=== PATIENT | female | born 1955 | race Caucasian/White ===

== ENCOUNTER → 2020-12-15 | Outpatient (CLI) | payer MEDICARE, OTHER ==
[~2020-12-15] MED LIST: AMARYL1 MG PO; AMITIZA24 MCG PO; CLARITIN-D 241 EACH PO; CRESTOR10 MG PO; FISH OIL 1,2001 EAC1 PO; FLUOXETINE HCL20 MG PO; GABAPENTIN300 MG PO; GLYBURIDE-METF1 EAC1 PO; IPRATROPIU0.2 MG/1 M; JANUVIA100 MG PO; LISINOPRIL-HCT1 EACH PO; LOSARTAN POTAS100 MG PO; MELOXICAM7.5 MG PO; METOPROLOL TART25 MG PO; OMEPRAZOLE40 MG PO; ONDANSETRON2 MG/1 ML PO; OXYBUTYNIN CHLOR5 MG PO; SIMVASTATIN20 MG PO; TIZANIDINE HCL4 MG PO
== END ==
LOC: RAD 13:36
PROVIDERS: ATTEND Internal Medicine
DX: R10.9 Unspecified abdominal pain (principal)
CPT/HCPCS: 71046; 74019

== ENCOUNTER → 2021-02-25 | Outpatient (CLI) | payer MEDICARE, OTHER ==
[~2021-02-25] MED LIST changes: +DIATRIZOATE MEGL/DIATRIZOA SOD 30 ML BTL PO ONE; +IOPAMIDOL 370 MG/ML 200 ML INFUS..BTL INJ ONE; +SODIUM CHLORIDE 0.9% 250ML 250 ML ONE; +SODIUM CHLORIDE 0.9% 500ML 500 ML ONE; +SODIUM CHLORIDE 0.9% 50ML 50 ML ONE
== END ==
LOC: CT 09:08
PROVIDERS: ATTEND Internal Medicine
DX: K57.92 Diverticulitis of intestine, part unspecified, without perforation or abscess without bleeding (principal)
CPT/HCPCS: 74177; J7040; J7050; Q9967

== ENCOUNTER → 2021-05-28 | Outpatient (CLI) | payer MEDICARE, OTHER ==
[~2021-05-28] MED LIST changes: -DIATRIZOATE MEGL/DIATRIZOA SOD 30 ML BTL PO ONE; -IOPAMIDOL 370 MG/ML 200 ML INFUS..BTL INJ ONE; -SODIUM CHLORIDE 0.9% 250ML 250 ML ONE; -SODIUM CHLORIDE 0.9% 500ML 500 ML ONE; -SODIUM CHLORIDE 0.9% 50ML 50 ML ONE
== END ==
LOC: SLEEP 06:34
PROVIDERS: ATTEND Internal Medicine
DX: G47.33 Obstructive sleep apnea (adult) (pediatric) (principal)
CPT/HCPCS: 95811

== ENCOUNTER → 2021-06-08 | Outpatient (CLI) | payer MEDICARE, OTHER | LOC: DX 10:26 | PROVIDERS: ATTEND Internal Medicine | DX: Z13.820 Encounter for screening for osteoporosis (principal) | CPT/HCPCS: 77080 ==

== ENCOUNTER → 2021-08-18 | Outpatient (CLI) | payer MEDICARE, OTHER | LOC: RAD 09:29 | PROVIDERS: ATTEND Internal Medicine | DX: M19.031 Primary osteoarthritis, right wrist (principal) ==

== ENCOUNTER → 2021-09-29 | Outpatient (CLI) | payer MEDICARE, OTHER ==
[~2021-09-29] MED LIST changes: +IOPAMIDOL 370 MG/ML 200 ML INFUS..BTL INJ ONE; +METOPROLOL TARTRATE 25 MG TAB ONE; +METOPROLOL TARTRATE INJ 1 MG/ML VIAL ONE; +NITROGLYCERIN 0.4 MG SUBL ONE; +SODIUM CHLORIDE 0.9% 100 ML ONE; +SODIUM CHLORIDE 0.9% 50ML 0 ML ONE
[2021-09-29 08:32] LABS: CREATININE, SERUM 1.06 mg/dL (0.57-1.11)
== END ==
LOC: CT 07:46
PROVIDERS: ATTEND Internal Medicine Cardiovascular Disease
DX: R06.02 Shortness of breath (principal)
CPT/HCPCS: 36415; 75574; 82565; 84520; J7050; Q9967

== ENCOUNTER → 2021-10-31 | Day surgery (SDC) | payer MEDICARE, OTHER ==
[2021-10-26 12:54] LABS: BASOPHILS % 0.4 % (0.0-1.0); EOSINOPHILS # (AUTO) 0.2 (0.0-0.4); EOSINOPHILS % 2.3 % (0.0-6.0); HEMATOCRIT 32.1 % (34.2-44.1); HEMOGLOBIN 9.9 g/dL (12.0-16.0); LYMPHOCYTES # (AUTO) 1.6 (1.0-3.2); LYMPHOCYTES % 23.8 % (18.0-39.1); MEAN CORPUSCULAR HEMOGLOBIN 26.2 pg (28-32); MEAN CORPUSCULAR HGB CONC 30.8 g/dL (31-35); MEAN CORPUSCULAR VOLUME 84.9 fL (81-99); MONOCYTES # (AUTO) 0.7 (0.2-0.8); MONOCYTES % 9.6 % (4.4-11.3); NEUTROPHILS # (AUTO) 4.4 (2.1-6.9); NEUTROPHILS % 63.5 % (38.7-80.0); PLATELET COUNT 160 x10e3/uL (140-360); RED BLOOD COUNT 3.78 x10e6/uL (3.6-5.1); RED CELL DISTRIBUTION WIDTH 15.9 % (11.7-14.4)
[2021-10-26 13:06] LABS: INR 1.18
[2021-10-26 13:07] LABS: PARTIAL THROMBOPLASTIN TIME 32.4 seconds (23.8-35.5)
[2021-10-26 13:13] LABS: ALBUMIN 3.2 g/dL (3.5-5.0); ALBUMIN/GLOBULIN RATIO 0.8 (0.8-2.0); ANION GAP 14.2 mmol/L (8-16); CALCIUM 9.4 mg/dL (8.4-10.2); CHOL/HDL RATIO 3.3 (3.0-3.6); CREATININE, SERUM 1.31 mg/dL (0.57-1.11); POTASSIUM 4.2 mmol/L (3.5-5.1)
[~2021-10-31] VITALS: Ht 170.2 cm; Wt 133.8 kg
[2021-10-31] VITALS (10 sets, daily range): BP systolic 102–121; BP diastolic 38–61
[~2021-10-31] MED LIST changes: +AMARYL2 MG PO; +ELIQUIS5 MG PO; +FENTANYL CITRATE/PF 100MCG/2 ML INJ ONE; +FUROSEMIDE40 MG PO; +HEPARIN SOD/SOD CHLORIDE 2,000 ML ONE; +IOPAMIDOL 370 MG/ML 100 ML INFUS..BTL INJ ONE; -IOPAMIDOL 370 MG/ML 200 ML INFUS..BTL INJ ONE; +LEVOCETIRIZINE D5 MG; +METHOCARBAMOL750 MG PO; +METOPROLOL TART50 MG PO; -METOPROLOL TARTRATE 25 MG TAB ONE; -METOPROLOL TARTRATE INJ 1 MG/ML VIAL ONE; +MIDAZOLAM HCL 2 MG/2 ML VIAL ONE; +MYRBETRIQ50 MG; -NITROGLYCERIN 0.4 MG SUBL ONE; +OZEMPIC0.25 MG/0. SC; +PROMETHAZINE HC25 M1 PO; -SODIUM CHLORIDE 0.9% 100 ML ONE; +SODIUM CHLORIDE 0.9% 1000ML 1,000 ML ONE; -SODIUM CHLORIDE 0.9% 50ML 0 ML ONE; +TYLENOL EXTRA500 MG PO; +ULTRAM50 MG PO; +VERAPAMIL HCL 2.5 MG/ML 2 ML VIAL ONE
== END | disposition home or self-care (01) ==
LOC: CATH LAB 07:23
PROVIDERS: ATTEND Internal Medicine Cardiovascular Disease
DX: I25.119 Atherosclerotic heart disease of native coronary artery with unspecified angina pectoris (principal); I48.91 Unspecified atrial fibrillation; I12.9 Hypertensive chronic kidney disease with stage 1 through stage 4 chronic kidney disease, or unspecified chronic kidney disease; N18.9 Chronic kidney disease, unspecified; E78.5 Hyperlipidemia, unspecified; E66.9 Obesity, unspecified; Z01.812 Encounter for preprocedural laboratory examination; Z20.822 Contact with and (suspected) exposure to COVID-19; Z79.02 Long term (current) use of antithrombotics/antiplatelets; Z79.84 Long term (current) use of oral hypoglycemic drugs; Z79.899 Other long term (current) drug therapy
CPT/HCPCS: 36415; 76937; 80053; 80061; 85025; 85610; 85730; 93458; C1887; J2250; J3010; J7030; Q9967; U0002; 99152

== ENCOUNTER → 2024-01-16 | Outpatient (REF) | payer MEDICARE, OTHER ==
[~2024-01-16] MED LIST changes: -FENTANYL CITRATE/PF 100MCG/2 ML INJ ONE; -HEPARIN SOD/SOD CHLORIDE 2,000 ML ONE; -IOPAMIDOL 370 MG/ML 100 ML INFUS..BTL INJ ONE; -MIDAZOLAM HCL 2 MG/2 ML VIAL ONE; -SODIUM CHLORIDE 0.9% 1000ML 1,000 ML ONE; -VERAPAMIL HCL 2.5 MG/ML 2 ML VIAL ONE
== END ==
LOC: MAMMO 11:59
PROVIDERS: ATTEND Internal Medicine
DX: Z12.31 Encounter for screening mammogram for malignant neoplasm of breast (principal)
CPT/HCPCS: 77067

== ENCOUNTER → 2024-02-14 | Outpatient (REF) | payer MEDICARE, OTHER | LOC: MAMMO 11:39 | PROVIDERS: ATTEND Internal Medicine | DX: N63.10 Unspecified lump in the right breast, unspecified quadrant (principal) ==

== ENCOUNTER → 2024-04-16 | Outpatient (REF) | payer MEDICARE, OTHER | LOC: US 13:39 | PROVIDERS: ATTEND Internal Medicine | DX: N63.10 Unspecified lump in the right breast, unspecified quadrant (principal) | CPT/HCPCS: 88305 ==

== ENCOUNTER 2024-06-23 18:05 | Inpatient (IN) | payer MEDICARE, OTHER ==
[~2024-06-23] VITALS: Ht 170.2 cm; Wt 117.9 kg
[2024-06-23 19:10] LABS: BASOPHILS % 0.5 % (0.0-1.0); EOSINOPHILS % 0.5 % (0.0-6.0); HEMATOCRIT 42.6 % (34.2-44.1); HEMOGLOBIN 12.9 g/dL (12.0-16.0); LYMPHOCYTES # (AUTO) 0.6 (1.0-3.2); LYMPHOCYTES % 6.4 % (18.0-39.1); MEAN CORPUSCULAR HEMOGLOBIN 25.6 pg (28-32); MEAN CORPUSCULAR HGB CONC 30.3 g/dL (31-35); MEAN CORPUSCULAR VOLUME 84.5 fL (81-99); MONOCYTES # (AUTO) 0.2 (0.2-0.8); MONOCYTES % 2.3 % (4.4-11.3); NEUTROPHILS # (AUTO) 7.8 (2.1-6.9); PLATELET COUNT 218 x10e3/uL (140-360); RED BLOOD COUNT 5.04 x10e6/uL (3.6-5.1); RED CELL DISTRIBUTION WIDTH 15.9 % (11.7-14.4); WHITE BLOOD COUNT 8.63 x10e3/uL (4.8-10.8)
[2024-06-23 19:28] LABS: ALBUMIN 4.2 g/dL (3.5-5.0); ANION GAP 25.1 mmol/L (8-16); BILIRUBIN,TOTAL 0.8 mg/dL (0.2-1.2); CALCIUM 10.3 mg/dL (8.4-10.2); CREATININE, SERUM 0.87 mg/dL (0.57-1.11); POTASSIUM 4.1 mmol/L (3.5-5.1); TOTAL PROTEIN 8.3 g/dL (6.5-8.1)
[2024-06-23 19:34] LABS: TROPONIN I 0.007 ng/mL (0-0.300)
[2024-06-23] MEDS ORDERED: IOPAMIDOL 370 MG/ML 100 ML INFUS..BTL INJ ONE (19:50)
[2024-06-23] MEDS: PROMETHAZINE 25MG/ NS 50ML (IV) IV STA (20:54)
[2024-06-23] MEDS: KETOROLAC TROMETHAMINE 30 MG/ML VIAL IV STA (20:55)
[2024-06-23] MEDS: SODIUM CHLORIDE 0.9% 1000ML 1,000 ML IV STA (22:40)
[2024-06-23] MEDS: ONDANSETRON HCL INJ 2MG/ML 2ML 2 MG/ML VIAL IV STA (22:41)
[2024-06-23] MEDS: FENTANYL CITRATE/PF 100MCG/2 ML INJ IV ONE (22:41)
[2024-06-23 23:16] LABS: COLOR,URINE YELLOW (YELLOW)
[2024-06-23 23:17] LABS: BILIRUBIN,URINE NEGATIVE (NEGATIVE); CLARITY,URINE CLOUDY (CLEAR); GLUCOSE, URINE NEGATIVE (NEGATIVE); KETONES,URINE 2+ (NEGATIVE); LEUKOCYTE ESTERASE ,URINE TRACE (NEGATIVE); NITRITE,URINE NEGATIVE (NEGATIVE); PH,URINE 7 (5 - 7); PROTEIN,URINE DIPSTICK >=300 (NEGATIVE); URINE UROBILINOGEN 0.2 mg/dL (0.2 - 1)
[2024-06-23 23:24] LABS: WBC,URINE (MAN) 21-50 /HPF (0-5)
[2024-06-23 23:25] LABS: BACTERIA,URINE MANY /HPF; EPITHELIAL CELLS,URINE FEW /LPF
[2024-06-24] MEDS ORDERED: METOCLOPRAMIDE HCL 10 MG/2ML VIAL ONE (00:12)
[2024-06-24] MEDS: METOPROLOL TARTRATE INJ 1 MG/ML VIAL IV STA (00:28)
[2024-06-24] MEDS: METOCLOPRAMIDE HCL 10 MG/2ML VIAL IV ONE (00:28)
[2024-06-24] MEDS: CIPROFLOXACIN 400 MG/D5W 200ML 200 ML IV SCH ×2 (00:29→17:27)
[2024-06-24] MEDS: SODIUM CHLORIDE 0.9% 1000ML 1,000 ML IV STA (00:29)
[2024-06-24] MEDS: DIAZEPAM INJ 5 MG/ML 2 ML IV STA ×2 (01:40→04:24)
[2024-06-24] MEDS: METOPROLOL TARTRATE INJ 1 MG/ML VIAL IV ONE (04:23)
[2024-06-24] MEDS: SODIUM CHLORIDE 0.9% 1000ML 1,000 ML IV SCH (04:24)
[2024-06-24] MEDS ORDERED: LINZESS145 MCG PO (07:56)
[2024-06-24] MEDS ORDERED: PROCHLORPERAZIN10 MG PO (07:56)
[2024-06-24] MEDS ORDERED: REGLAN10 MG PO (07:56)
[2024-06-24] MEDS ORDERED: VENLAFAXINE H37.5 M1 PO (07:56)
[2024-06-24] MEDS ORDERED: ROSUVASTATIN CA40 MG PO (07:56)
[2024-06-24] MEDS ORDERED: ALBUTEROL0.63 MG/3 NEB (07:56)
[2024-06-24] MEDS ORDERED: AMIODARONE HCL200 MG PO (07:56)
[2024-06-24] MEDS ORDERED: MONTELUKAST SOD10 MG PO (07:56)
[2024-06-24] MEDS: DICYCLOMINE HCL 20 MG/2 ML VIAL IM ONE (08:23)
[2024-06-24] MEDS: DIPHENHYDRAMINE HCL INJ 50 MG/ML VIAL IV ONE (08:23)
[2024-06-24 09:10] VITALS: PULSE 83; RESP 20; TEMP 98.4
[2024-06-24] MEDS ORDERED: ACETAMINOPHEN 325 MG TAB PO PRN (10:00)
[2024-06-24 10:19] LABS: TROPONIN I 0.035 ng/mL (0-0.300)
[2024-06-24] MEDS: ONDANSETRON HCL INJ 2MG/ML 2ML 2 MG/ML VIAL IV PRN (11:01)
[2024-06-24] MEDS: METOCLOPRAMIDE HCL 10 MG/2ML VIAL IV SCH (11:01)
[2024-06-24] MEDS ORDERED: Morphine 2mg Syringe 2 MG/ML SYR IV PRN (11:45)
[2024-06-24 12:00] VITALS: BP 163/78; PULSE 85; RESP 18; TEMP 97.9; O2SAT 100
[2024-06-24 12:06] VITALS: BP 163/78; PULSE 85; RESP 18; TEMP 97.9; O2SAT 100
[2024-06-24] MEDS: HYDROMORPHONE 1MG/1ML INJ IV PRN (13:36)
[2024-06-24] MEDS: PROMETHAZINE 12.5MG/ NACL 0.9% 12.5 MG/50 ML BAG IV PRN ×2 (13:37→18:25)
[2024-06-24] MEDS ORDERED: FUROSEMIDE 40 MG TAB PO PRN (15:30)
[2024-06-24] MEDS ORDERED: HYDRALAZINE HCL 20 MG/ML VIAL IV PRN (15:30)
[2024-06-24 16:28] VITALS: BP 145/67; PULSE 96; RESP 18; TEMP 98.1; O2SAT 97
[2024-06-24] MEDS: AMIODARONE HCL 200 MG TAB PO SCH (17:30)
[2024-06-24] MEDS: GABAPENTIN 300 MG CAP PO SCH (17:30)
[2024-06-24 17:31] VITALS: BP 145/67; PULSE 96
[2024-06-24] MEDS: ENOXAPARIN SOD INJ 40 MG/0.4 ML SYR SC SCH (17:31)
[2024-06-24] MEDS: METOPROLOL TARTRATE 25 MG TAB PO SCH (17:31)
[2024-06-24] MEDS ORDERED: LOSARTAN POTASSIUM 25 MG TAB PO SCH (21:00)
[2024-06-30 05:41] LABS: ABG HCO3 19 mmol/L (22-26); ABG PCO2 27 mmHg (35-45); ABG PH 7.46 (7.35-7.45); ABG PO2 63 mmHg (80-105); ABG TCO2 20
== END 2024-06-24 19:03 | disposition short-term general hospital (02) | DRG 392 ==
LOC: ER 18:10 → ERHOLD 06-24 02:01 → MED/SURG2 06-24 10:35 → OBSVTOIN 06-24 12:53 → UNDODISOB 06-24 19:03
PROVIDERS: ADMIT Internal Medicine; ATTEND Internal Medicine
PROC: 4A033R1 Measurement of Arterial Saturation, Peripheral, Percutaneous Approach (ICD-10-PCS; principal; 2024-06-24)
PROC: 4A043R1 Measurement of Venous Saturation, Peripheral, Percutaneous Approach (ICD-10-PCS; 2024-06-24)
DX: R11.2 Nausea with vomiting, unspecified (principal); N30.01 Acute cystitis with hematuria; J90 Pleural effusion, not elsewhere classified; E87.1 Hypo-osmolality and hyponatremia; K76.6 Portal hypertension; E87.29 Other acidosis; Z68.41 Body mass index [BMI] 40.0-44.9, adult; J98.11 Atelectasis; R07.9 Chest pain, unspecified; E83.52 Hypercalcemia; I47.9 Paroxysmal tachycardia, unspecified; K21.00 Gastro-esophageal reflux disease with esophagitis, without bleeding; I48.0 Paroxysmal atrial fibrillation; Z79.01 Long term (current) use of anticoagulants; K74.60 Unspecified cirrhosis of liver; K57.30 Diverticulosis of large intestine without perforation or abscess without bleeding; E66.01 Morbid (severe) obesity due to excess calories; F33.41 Major depressive disorder, recurrent, in partial remission; F41.9 Anxiety disorder, unspecified; G62.9 Polyneuropathy, unspecified; Z85.01 Personal history of malignant neoplasm of esophagus; Z90.49 Acquired absence of other specified parts of digestive tract; Z79.899 Other long term (current) drug therapy
CPT/HCPCS: 36415; 71260; 74177; 80053; 81001; 82550; 82805; 82948; 83605; 83690; 83880; 84484; 85025; 87086; 93005; 99284; G0378; J1171; J1200; J1650; J1885; J2405; J2470; J2550; J2765; J3360; J7030; Q9967

== ENCOUNTER 2024-10-08 21:48 | Inpatient (IN) | payer MEDICARE, OTHER ==
[~2024-10-08] VITALS: Ht 170.2 cm; Wt 107.0 kg
[~2024-10-08 21:48] MED LIST changes: +ALBUTEROL0.63 MG/3 NEB; +AMIODARONE HCL200 MG PO; +LINZESS145 MCG PO; +MONTELUKAST SOD10 MG PO; +PROCHLORPERAZIN10 MG PO; +REGLAN10 MG PO; +ROSUVASTATIN CA40 MG PO; +VENLAFAXINE H37.5 M1 PO
[2024-10-08 22:05] VITALS: TEMP 98
[2024-10-08] MEDS ORDERED: GLUCAGON FOR INJ 1 MG VIAL IV ONE (22:15)
[2024-10-08] MEDS ORDERED: GLUCAGON FOR INJ 1 MG VIAL ONE ×2 (22:19→22:33)
[2024-10-08] MEDS: ONDANSETRON HCL INJ 2MG/ML 2ML 2 MG/ML VIAL IV STA (22:25)
[2024-10-08] MEDS: SODIUM CHLORIDE 0.9% 1000ML 1,000 ML IV ONE (22:25)
[2024-10-08] MEDS: GLUCAGON FOR INJ 1 MG VIAL IV ONE (22:35)
[2024-10-08 22:43] LABS: BASOPHILS % 0.1 % (0.0-1.0); HEMATOCRIT 32.1 % (34.2-44.1); HEMOGLOBIN 10.3 g/dL (12.0-16.0); LYMPHOCYTES # (AUTO) 0.5 (1.0-3.2); LYMPHOCYTES % 6.3 % (18.0-39.1); MEAN CORPUSCULAR HEMOGLOBIN 25.7 pg (28-32); MEAN CORPUSCULAR HGB CONC 32.1 g/dL (31-35); MONOCYTES # (AUTO) 0.1 (0.2-0.8); MONOCYTES % 1.7 % (4.4-11.3); NEUTROPHILS # (AUTO) 7.4 (2.1-6.9); NEUTROPHILS % 91.7 % (38.7-80.0); PLATELET COUNT 220 x10e3/uL (140-360); RED BLOOD COUNT 4.01 x10e6/uL (3.6-5.1); RED CELL DISTRIBUTION WIDTH 16.1 % (11.7-14.4); WHITE BLOOD COUNT 8.04 x10e3/uL (4.8-10.8)
[2024-10-08 22:56] LABS: ALBUMIN 3.7 g/dL (3.5-5.0); ANION GAP 16.7 mmol/L (8-16); BILIRUBIN,TOTAL 0.4 mg/dL (0.2-1.2); CALCIUM 9.1 mg/dL (8.4-10.2); CREATININE, SERUM 0.89 mg/dL (0.57-1.11); POTASSIUM 3.7 mmol/L (3.5-5.1); TOTAL PROTEIN 7.5 g/dL (6.5-8.1)
[2024-10-08 23:02] LABS: TROPONIN I 0.007 ng/mL (0-0.300)
[2024-10-08] MEDS ORDERED: IOPAMIDOL 370 MG/ML 100 ML INFUS..BTL INJ ONE (23:02)
[2024-10-08 23:31] LABS: CLARITY,URINE CLEAR (CLEAR); COLOR,URINE YELLOW (YELLOW)
[2024-10-08 23:32] LABS: BACTERIA,URINE MANY /HPF; BILIRUBIN,URINE NEGATIVE (NEGATIVE); EPITHELIAL CELLS,URINE FEW /LPF; GLUCOSE, URINE NEGATIVE (NEGATIVE); KETONES,URINE NEGATIVE (NEGATIVE); LEUKOCYTE ESTERASE ,URINE NEGATIVE (NEGATIVE); NITRITE,URINE NEGATIVE (NEGATIVE); PH,URINE 7 (5 - 7); PROTEIN,URINE DIPSTICK >=300 (NEGATIVE); URINE UROBILINOGEN 0.2 mg/dL (0.2 - 1); WBC,URINE (MAN) 0-5 /HPF (0-5)
[2024-10-08 23:49] VITALS: PULSE 41; RESP 17
[2024-10-09] VITALS (41 sets, daily range): BP systolic 116–191; BP diastolic 59–114; PULSE 53–85; RESP 9–25; TEMP 97–98.4; O2SAT 93–100
[2024-10-09] MEDS: SODIUM CHLORIDE 0.9% 1000ML 1,000 ML IV ONE (00:44)
[2024-10-09] MEDS: SODIUM CHLORIDE 0.9% 1000ML 1,000 ML IV SCH (02:22)
[2024-10-09 04:45] LABS: CREATINE KINASE 20 IU/L (29-168)
[2024-10-09 04:55] LABS: TROPONIN I < 0.001 ng/mL (0-0.300)
[2024-10-09] MEDS ORDERED: ACETAMINOPHEN-1 EAC3 PO (05:47)
[2024-10-09] MEDS ORDERED: METOPROLOL SUCC50 MG PO (05:47)
[2024-10-09] MEDS: ONDANSETRON HCL INJ 2MG/ML 2ML 2 MG/ML VIAL IV PRN (06:27)
[2024-10-09] MEDS ORDERED: DEXTROSE 50% SYRINGE 50 ML IV PRN (08:00)
[2024-10-09] MEDS: LACTATED RINGER'S 1,000 ML INJ SCH (08:13)
[2024-10-09] MEDS: HYDROMORPHONE 1MG/1ML INJ IV ONE (08:14)
[2024-10-09 08:16] LABS: ALBUMIN 3.5 g/dL (3.5-5.0); ANION GAP 17.4 mmol/L (8-16); BILIRUBIN,TOTAL 0.6 mg/dL (0.2-1.2); CALCIUM 8.9 mg/dL (8.4-10.2); CREATININE, SERUM 0.74 mg/dL (0.57-1.11); TOTAL PROTEIN 7.1 g/dL (6.5-8.1)
[2024-10-09 08:18] LABS: POTASSIUM 3.4 mmol/L (3.5-5.1)
[2024-10-09 09:22] LABS: BASOPHILS % 0.1 % (0.0-1.0); HEMATOCRIT 29.6 % (34.2-44.1); HEMOGLOBIN 9.7 g/dL (12.0-16.0); LYMPHOCYTES # (AUTO) 0.6 (1.0-3.2); MEAN CORPUSCULAR HEMOGLOBIN 25.8 pg (28-32); MEAN CORPUSCULAR HGB CONC 32.8 g/dL (31-35); MEAN CORPUSCULAR VOLUME 78.7 fL (81-99); MONOCYTES # (AUTO) 0.6 (0.2-0.8); MONOCYTES % 7.6 % (4.4-11.3); NEUTROPHILS # (AUTO) 7.1 (2.1-6.9); NEUTROPHILS % 85.1 % (38.7-80.0); PLATELET COUNT 159 x10e3/uL (140-360); RED BLOOD COUNT 3.76 x10e6/uL (3.6-5.1); RED CELL DISTRIBUTION WIDTH 16.2 % (11.7-14.4)
[2024-10-09] MEDS: HYDRALAZINE HCL 20 MG/ML VIAL IV PRN (11:04)
[2024-10-09] MEDS: INSULIN REGULAR, HUMAN 100 UNIT/1 ML SQ SCH (11:30)
[2024-10-09] MEDS: HYDROMORPHONE 1MG/1ML INJ IV PRN (12:16)
[2024-10-09] MEDS: PROMETHAZINE 25MG/ NS 50ML (IV) IV STA (13:09)
[2024-10-09] MEDS: PROCHLORPERAZINE EDISYLATE 5 MG/ML VIAL IV PRN (13:29)
[2024-10-09] MEDS ORDERED: LINACLOTIDE 145 MCG CAPSULE PO SCH (14:30)
[2024-10-09] MEDS: LOSARTAN POTASSIUM 100 MG TAB PO SCH (14:36)
[2024-10-09] MEDS: ACETAMINOPHEN/CODEINE 300MG - 30MG TAB PO PRN (14:37)
[2024-10-09] MEDS ORDERED: LINZESS PO SCH (15:00)
[2024-10-09] MEDS: APIXABAN 5 MG TABLET PO SCH (16:40)
[2024-10-09] MEDS: CRESTOR 10MG PO SCH (20:21)
[2024-10-10] VITALS (18 sets, daily range): BP systolic 109–184; BP diastolic 58–91; PULSE 62–96; RESP 12–22; TEMP 97.2–98.2; O2SAT 93–99
[2024-10-10] MEDS: PROMETHAZINE HCL (IM) 25 MG/ML VIAL IM ONE (02:13)
[2024-10-10 05:57] LABS: BASOPHILS % 0.3 % (0.0-1.0); EOSINOPHILS % 0.1 % (0.0-6.0); HEMATOCRIT 31.4 % (34.2-44.1); HEMOGLOBIN 10.2 g/dL (12.0-16.0); LYMPHOCYTES # (AUTO) 1.5 (1.0-3.2); LYMPHOCYTES % 19.3 % (18.0-39.1); MEAN CORPUSCULAR HEMOGLOBIN 25.6 pg (28-32); MEAN CORPUSCULAR HGB CONC 32.5 g/dL (31-35); MEAN CORPUSCULAR VOLUME 78.7 fL (81-99); MONOCYTES # (AUTO) 0.7 (0.2-0.8); MONOCYTES % 8.8 % (4.4-11.3); NEUTROPHILS # (AUTO) 5.6 (2.1-6.9); NEUTROPHILS % 71.2 % (38.7-80.0); PLATELET COUNT 199 x10e3/uL (140-360); RED BLOOD COUNT 3.99 x10e6/uL (3.6-5.1); RED CELL DISTRIBUTION WIDTH 16.6 % (11.7-14.4); WHITE BLOOD COUNT 7.87 x10e3/uL (4.8-10.8)
[2024-10-10 06:38] LABS: ALBUMIN 3.4 g/dL (3.5-5.0); ANION GAP 17.9 mmol/L (8-16); BILIRUBIN,TOTAL 0.5 mg/dL (0.2-1.2); CALCIUM 8.7 mg/dL (8.4-10.2); CREATININE, SERUM 0.83 mg/dL (0.57-1.11); TOTAL PROTEIN 6.8 g/dL (6.5-8.1)
[2024-10-10 06:43] LABS: POTASSIUM 2.9 mmol/L (3.5-5.1)
[2024-10-10 06:47] LABS: % IRON SATURATION 9 % (15-50); IRON 32 ug/dL (50-170); TOTAL IRON BINDING CAPACITY 347 ug/dL (261-478); TRANSFERRIN 248 mg/dL (180-382)
[2024-10-10 06:53] LABS: TROPONIN I 0.013 ng/mL (0-0.300)
[2024-10-10] MEDS: POTASSIUM CHLORIDE 20MEQ/100ML 100 ML IV SCH ×2 (08:32→17:41)
[2024-10-10] MEDS ORDERED: POTASSIUM CHLORIDE 20 MEQ TAB CR PO ONE (14:15)
[2024-10-10] MEDS: NIFEDIPINE CR 30 MG TAB PO SCH (14:43)
[2024-10-10] MEDS: METOCLOPRAMIDE HCL 10 MG/2ML VIAL IV SCH (23:59)
[2024-10-11] VITALS (8 sets, daily range): BP systolic 149–184; BP diastolic 56–87; PULSE 82–103; RESP 18–20; TEMP 97.6–97.9; O2SAT 96–100
[2024-10-11 00:20] LABS: ANION GAP 16.5 mmol/L (8-16); CALCIUM 8.6 mg/dL (8.4-10.2)
[2024-10-11 00:23] LABS: CREATININE, SERUM 0.78 mg/dL (0.57-1.11)
[2024-10-11 00:25] LABS: POTASSIUM 3.5 mmol/L (3.5-5.1)
[2024-10-11] MEDS: PROCHLORPERAZINE EDISYLATE 5 MG/ML VIAL IV PRN (02:15)
[2024-10-11] MEDS: ASPIRIN 81 MG CHEW TAB PO ONE (03:00)
[2024-10-11 06:23] LABS: HEMATOCRIT 33.8 % (34.2-44.1); HEMOGLOBIN 11.3 g/dL (12.0-16.0); LYMPHOCYTES % 7.4 % (18.0-39.1); MEAN CORPUSCULAR HEMOGLOBIN 25.9 pg (28-32); MEAN CORPUSCULAR HGB CONC 33.4 g/dL (31-35); MEAN CORPUSCULAR VOLUME 77.5 fL (81-99); MONOCYTES % 4.5 % (4.4-11.3); NEUTROPHILS % 87.4 % (38.7-80.0); PLATELET COUNT 220 x10e3/uL (140-360); RED BLOOD COUNT 4.36 x10e6/uL (3.6-5.1); RED CELL DISTRIBUTION WIDTH 16.5 % (11.7-14.4); WHITE BLOOD COUNT 11.47 x10e3/uL (4.8-10.8)
[2024-10-11 06:24] LABS: BASOPHILS % 0.2 % (0.0-1.0); LYMPHOCYTES # (AUTO) 0.9 (1.0-3.2); MONOCYTES # (AUTO) 0.5 (0.2-0.8)
[2024-10-11 06:55] LABS: ANION GAP 18.4 mmol/L (8-16); BILIRUBIN,TOTAL 0.6 mg/dL (0.2-1.2); CALCIUM 8.8 mg/dL (8.4-10.2); CREATININE, SERUM 0.76 mg/dL (0.57-1.11); POTASSIUM 3.4 mmol/L (3.5-5.1)
[2024-10-11 06:56] LABS: ALBUMIN 3.7 g/dL (3.5-5.0); TOTAL PROTEIN 7.5 g/dL (6.5-8.1)
[2024-10-11] MEDS: METOPROLOL SUCCINATE 25 MG TAB XL PO SCH (09:37)
[2024-10-11] MEDS: LACTULOSE SYRUP 20 GM/30 ML UDC PO SCH (16:18)
[2024-10-11] MEDS: NIFEDIPINE CR 30 MG TAB PO SCH (16:19)
[2024-10-11] MEDS: DOCUSATE SODIUM LIQD 100 MG/10 ML UDC NG ONE (16:31)
[2024-10-12] MEDS ORDERED: MONTELUKAST SODIUM 10 MG TAB PO SCH (09:00)
[2024-10-12] MEDS ORDERED: VENLAFAXINE HCL 75 MG CAPCR PO SCH (09:00)
== END 2024-10-11 18:20 | disposition short-term general hospital (02) | DRG 309 ==
LOC: ER 22:15 → ERHOLD 10-09 01:18 → ICU 10-09 02:05 → MED/SURG2 10-10 13:19
PROVIDERS: ADMIT Internal Medicine; ATTEND Internal Medicine
PROC: 02HV33Z Insertion of Infusion Device into Superior Vena Cava, Percutaneous Approach (ICD-10-PCS; principal; 2024-10-09)
DX: R00.1 Bradycardia, unspecified (principal); E87.20 Acidosis, unspecified; N17.9 Acute kidney failure, unspecified; D63.8 Anemia in other chronic diseases classified elsewhere; E86.0 Dehydration; T46.2X5A Adverse effect of other antidysrhythmic drugs, initial encounter; T44.7X5A Adverse effect of beta-adrenoreceptor antagonists, initial encounter; R11.2 Nausea with vomiting, unspecified; I95.9 Hypotension, unspecified; E86.1 Hypovolemia; K75.81 Nonalcoholic steatohepatitis (NASH); E11.65 Type 2 diabetes mellitus with hyperglycemia; I48.0 Paroxysmal atrial fibrillation; Z79.01 Long term (current) use of anticoagulants; K74.60 Unspecified cirrhosis of liver; K21.9 Gastro-esophageal reflux disease without esophagitis; K22.4 Dyskinesia of esophagus; E87.8 Other disorders of electrolyte and fluid balance, not elsewhere classified; F98.5 Adult onset fluency disorder; R41.0 Disorientation, unspecified; Z53.8 Procedure and treatment not carried out for other reasons; K59.00 Constipation, unspecified; J44.9 Chronic obstructive pulmonary disease, unspecified; F41.8 Other specified anxiety disorders; Z93.0 Tracheostomy status; Z93.4 Other artificial openings of gastrointestinal tract status; I86.8 Varicose veins of other specified sites; G62.9 Polyneuropathy, unspecified; Z85.01 Personal history of malignant neoplasm of esophagus; Z90.49 Acquired absence of other specified parts of digestive tract; Z88.5 Allergy status to narcotic agent; Z88.0 Allergy status to penicillin; Z88.2 Allergy status to sulfonamides; Z79.899 Other long term (current) drug therapy
CPT/HCPCS: 36415; 36569; 51700; 70450; 71045; 74177; 80048; 80053; 81001; 82140; 82550; 82607; 82746; 82948; 83540; 83690; 83735; 84466; 84484; 85025; 85045; 93005; 94799; 99252; 99285; J0360; J1171; J1610; J2405; J2470; J2550; J2765; J3480; J7030; Q9967

== ENCOUNTER 2025-01-23 14:14 | Emergency (ER) | payer MEDICARE, OTHER ==
[~2025-01-23] VITALS: Ht 167.6 cm; Wt 92.1 kg
[~2025-01-23 14:14] MED LIST changes: +ACETAMINOPHEN-1 EAC3 PO; +METOPROLOL SUCC50 MG PO
[2025-01-23] MEDS: SODIUM CHLORIDE 0.9% 1000ML 1,000 ML IV STA (14:41)
[2025-01-23 14:47] LABS: BASOPHILS % 0.3 % (0.0-1.0); EOSINOPHILS % 1.0 % (0.0-6.0); LYMPHOCYTES % 15.1 % (18.0-39.1); MONOCYTES % 8.7 % (4.4-11.3); NEUTROPHILS % 74.6 % (38.7-80.0); RED CELL DISTRIBUTION WIDTH 16.1 % (11.7-14.4)
[2025-01-23] MEDS: DICYCLOMINE HCL 20 MG/2 ML VIAL IM ONE (15:07)
[2025-01-23 15:11] LABS: LEUKOCYTE ESTERASE ,URINE MODERATE (NEGATIVE)
[2025-01-23 15:12] LABS: PROTEIN,URINE DIPSTICK 1+ (NEGATIVE); URINE UROBILINOGEN 1 mg/dL (0.2 - 1)
[2025-01-23 15:19] LABS: EST GLOMERULAR FILTRATION RATE 93.0 ML/MIN (>=60)
[2025-01-23] MEDS: ONDANSETRON HCL INJ 2MG/ML 2ML 2 MG/ML VIAL IV PRN (15:28)
[2025-01-23 15:33] LABS: EPITHELIAL CELLS,URINE FEW /LPF; WBC,URINE (MAN) >50 /HPF (0-5)
[2025-01-23] MEDS ORDERED: CEFDINIR300 MG PO (16:10)
[2025-01-23 17:01] VITALS: PULSE 67; RESP 17; TEMP 98.2; O2SAT 100
[2025-01-23] MEDS ORDERED: IOPAMIDOL 370 MG/ML 100 ML INFUS..BTL INJ ONE (19:08)
== END 2025-01-23 17:04 | disposition home or self-care (01) ==
LOC: ER 14:26
DX: R53.1 Weakness (principal); N39.0 Urinary tract infection, site not specified; E87.1 Hypo-osmolality and hyponatremia; R19.7 Diarrhea, unspecified; R10.9 Unspecified abdominal pain; N28.1 Cyst of kidney, acquired; Z85.01 Personal history of malignant neoplasm of esophagus; I10 Essential (primary) hypertension; E11.9 Type 2 diabetes mellitus without complications; J44.9 Chronic obstructive pulmonary disease, unspecified; I48.91 Unspecified atrial fibrillation; K21.9 Gastro-esophageal reflux disease without esophagitis; F32.A Depression, unspecified
CPT/HCPCS: 36415; 71045; 74177; 80053; 81001; 83690; 84484; 85025; 87086; 87186; 93005; 99284; J0696; J2405; J7030; Q9967

== ENCOUNTER 2025-02-15 | Inpatient (IN) | payer MEDICARE, OTHER ==
[~2025-02-15] VITALS: Ht 167.6 cm; Wt 92.1 kg
[2025-02-15] VITALS (11 sets, daily range): BP systolic 96–163; BP diastolic 40–73; PULSE 60–87; RESP 18–29; TEMP 97.8–98.7; O2SAT 94–100
[~2025-02-15] MED LIST changes: +CEFDINIR300 MG PO
[2025-02-15 00:36] LABS: BASOPHILS % 0.3 % (0.0-1.0); EOSINOPHILS % 0.1 % (0.0-6.0); LYMPHOCYTES % 16.6 % (18.0-39.1); MONOCYTES % 9.9 % (4.4-11.3); NEUTROPHILS % 72.8 % (38.7-80.0); RED CELL DISTRIBUTION WIDTH 16.6 % (11.7-14.4)
[2025-02-15 00:39] LABS: ABG BASE EXCESS -5.0 mmol/L (-2 - 3); ABG HCO3 15 mmol/L (22-26); ABG OXYGEN SATURATION 99.0 % (95-98); ABG PCO2 11 mmHg (35-45); ABG PH 7.73 (7.35-7.45); ABG PO2 100 mmHg (80-105); ABG TCO2 15
[2025-02-15] MEDS: SODIUM CHLORIDE 0.9% 1000ML 1,000 ML IV ONE ×2 (00:41→00:42)
[2025-02-15] MEDS: ONDANSETRON HCL INJ 2MG/ML 2ML 2 MG/ML VIAL IV STA (00:41)
[2025-02-15 00:50] LABS: INR 0.99
[2025-02-15 00:59] LABS: EST GLOMERULAR FILTRATION RATE 70.0 ML/MIN (>=60)
[2025-02-15] MEDS: LORAZEPAM INJ 2 MG/ML VIAL IV ONE (01:03)
[2025-02-15] MEDS ORDERED: IOPAMIDOL 370 MG/ML 100 ML INFUS..BTL INJ ONE (01:37)
[2025-02-15] MEDS: METRONIDAZOLE 500MG/NS 100ML 100 ML IV SCH ×2 (02:26→23:19)
[2025-02-15] MEDS: PROMETHAZINE 25MG/ NS 50ML (IV) IV ONE (03:39)
[2025-02-15] MEDS: CIPROFLOXACIN 400 MG/D5W 200ML 200 ML IV SCH (03:59)
[2025-02-15] MEDS: SODIUM CHLORIDE 0.9% 1000ML 1,000 ML IV SCH (04:00)
[2025-02-15] MEDS ORDERED: METOPROLOL TARTRATE INJ 1 MG/ML VIAL ONE (04:25)
[2025-02-15] MEDS: METOPROLOL TARTRATE INJ 1 MG/ML VIAL IV ONE (04:29)
[2025-02-15] MEDS: ONDANSETRON HCL INJ 2MG/ML 2ML 2 MG/ML VIAL IV PRN (05:14)
[2025-02-15] MEDS ORDERED: POTASSIUM CHLORIDE 20 MEQ TAB CR PO PRN (08:15)
[2025-02-15] MEDS ORDERED: DEXTROSE 50% SYRINGE 50 ML IV PRN (08:15)
[2025-02-15] MEDS ORDERED: LIDOCAINE 4% PATCH TP PRN (08:15)
[2025-02-15] MEDS ORDERED: BENZONATATE 100 MG CAP PO PRN (08:15)
[2025-02-15] MEDS ORDERED: DIPHENHYDRAMINE HCL 25 MG CAP PO PRN (08:15)
[2025-02-15] MEDS ORDERED: HYDRALAZINE HCL 20 MG/ML VIAL IV PRN (08:15)
[2025-02-15] MEDS ORDERED: DOCUSATE SODIUM 100 MG CAP PO PRN (08:15)
[2025-02-15] MEDS: SIMETHICONE 80 MG CHEW PO PRN (11:25)
[2025-02-15] MEDS: METOCLOPRAMIDE HCL 10 MG/2ML VIAL IV SCH (13:22)
[2025-02-15] MEDS ORDERED: METOCLOPRAMIDE HCL 10 MG/2ML VIAL IV SCH (14:00)
[2025-02-15] MEDS ORDERED: [UNRECOGNIZED DRUG - OTHER] PO SCH (14:15)
[2025-02-15] MEDS: TIZANIDINE HCL 4 MG TAB PO PRN (14:46)
[2025-02-15] MEDS ORDERED: ENOXAPARIN SOD INJ 40 MG/0.4 ML SYR SC SCH (17:00)
[2025-02-15] MEDS: GABAPENTIN 300 MG CAP PO SCH (18:00)
[2025-02-15] MEDS: D5NS/KCL 20MEQ 1,000 ML IV SCH (18:01)
[2025-02-15] MEDS: MINERAL OIL 132 ML BTL PR ONE (19:32)
[2025-02-15 21:55] LABS: % IRON SATURATION 6 % (15-50)
[2025-02-15] MEDS: MELATONIN 5 MG TABLET PO PRN (22:22)
[2025-02-16] VITALS (9 sets, daily range): BP systolic 107–127; BP diastolic 55–64; PULSE 52–80; RESP 16–20; TEMP 97.4–98.5; O2SAT 94–100
[2025-02-16 06:32] LABS: BASOPHILS % 0.7 % (0.0-1.0); EOSINOPHILS % 0.7 % (0.0-6.0); LYMPHOCYTES % 22.0 % (18.0-39.1); MONOCYTES % 11.1 % (4.4-11.3); NEUTROPHILS % 65.1 % (38.7-80.0); RED CELL DISTRIBUTION WIDTH 17.1 % (11.7-14.4)
[2025-02-16 06:57] LABS: EST GLOMERULAR FILTRATION RATE 89.0 ML/MIN (>=60)
[2025-02-16] MEDS ORDERED: PANTOPRAZOLE SOD 40 MG TABEC PO SCH (07:30)
[2025-02-16 08:37] LABS: ABG PCO2 28 mmHg (35-45); ABG PH 7.45 (7.35-7.45)
[2025-02-16 08:38] LABS: ABG BASE EXCESS -4.0 mmol/L (-2 - 3); ABG HCO3 20 mmol/L (22-26); ABG OXYGEN SATURATION 99.0 % (95-98); ABG PO2 114 mmHg (80-105); ABG TCO2 21
[2025-02-16] MEDS: IRON SUCROSE 100 MG in SODIUM CHLORIDE 0.9% 100 ML IV SCH (09:19)
[2025-02-16] MEDS ORDERED: DIATRIZOATE MEGL/DIATRIZOA SOD 30 ML BTL PO ONE (09:21)
[2025-02-16] MEDS: MONTELUKAST SODIUM 10 MG TAB PO SCH (09:25)
[2025-02-16] MEDS: LOSARTAN POTASSIUM 25 MG TAB PO SCH (09:25)
[2025-02-16] MEDS: VENLAFAXINE HCL 37.5MG XR CAP PO SCH (09:25)
[2025-02-16] MEDS: METOPROLOL SUCCINATE 50 MG TAB XL PO SCH (09:25)
[2025-02-16] MEDS: AMIODARONE HCL 200 MG TAB PO SCH (09:26)
[2025-02-16] MEDS: GABAPENTIN 100 MG CAP PO SCH (09:55)
[2025-02-16] MEDS: SODIUM CHLORIDE 0.9% 250ML 250 ML ONE (10:10)
[2025-02-16 11:06] LABS: LEUKOCYTE ESTERASE ,URINE NEGATIVE (NEGATIVE); PROTEIN,URINE DIPSTICK TRACE (NEGATIVE); URINE UROBILINOGEN 0.2 mg/dL (0.2 - 1)
[2025-02-16 11:29] LABS: EPITHELIAL CELLS,URINE RARE /LPF; WBC,URINE (MAN) 0-5 /HPF (0-5); YEAST,URINE RARE
[2025-02-17] VITALS (8 sets, daily range): BP systolic 108–136; BP diastolic 57–65; PULSE 52–75; RESP 18–20; TEMP 97.6–98.1; O2SAT 94–100
[2025-02-17 06:34] LABS: BASOPHILS % 0.5 % (0.0-1.0); EOSINOPHILS % 1.6 % (0.0-6.0); LYMPHOCYTES % 18.5 % (18.0-39.1); MONOCYTES % 9.0 % (4.4-11.3); NEUTROPHILS % 70.1 % (38.7-80.0); RED CELL DISTRIBUTION WIDTH 17.2 % (11.7-14.4)
[2025-02-17 07:04] LABS: EST GLOMERULAR FILTRATION RATE 88.0 ML/MIN (>=60)
[2025-02-17] MEDS: BISACODYL 10 MG SUPP PR ONE (09:25)
[2025-02-17] MEDS: APIXABAN 5 MG TABLET PO SCH (18:02)
[2025-02-17] MEDS: ACETAMINOPHEN 325 MG TAB PO PRN (22:13)
[2025-02-18] VITALS (11 sets, daily range): BP systolic 127–191; BP diastolic 68–99; PULSE 63–139; RESP 17–22; TEMP 97.3–98.2; O2SAT 95–100
[2025-02-18 06:36] LABS: BASOPHILS % 0.5 % (0.0-1.0); EOSINOPHILS % 1.7 % (0.0-6.0); LYMPHOCYTES % 21.9 % (18.0-39.1); MONOCYTES % 9.3 % (4.4-11.3); NEUTROPHILS % 65.9 % (38.7-80.0); RED CELL DISTRIBUTION WIDTH 17.0 % (11.7-14.4)
[2025-02-18 06:51] LABS: EST GLOMERULAR FILTRATION RATE 85.0 ML/MIN (>=60)
[2025-02-18] MEDS ORDERED: METOCLOPRAMIDE HCL 10 MG/2ML VIAL IV PRN (10:45)
[2025-02-18] MEDS: PROMETHAZINE 12.5MG/ NACL 0.9% 12.5 MG/50 ML BAG IV ONE (11:05)
[2025-02-18] MEDS: METOCLOPRAMIDE HCL 10 MG/2ML VIAL IV SCH (14:00)
[2025-02-18] MEDS: PROCHLORPERAZINE EDISYLATE 5 MG/ML VIAL IV ONE ×2 (15:04→19:59)
[2025-02-18] MEDS: SODIUM CHLORIDE 0.9% 1000ML 1,000 ML IV SCH (15:04)
[2025-02-18] MEDS: HYDROMORPHONE 1MG/1ML INJ IV PRN (16:47)
[2025-02-19] VITALS (9 sets, daily range): BP systolic 104–189; BP diastolic 53–97; PULSE 70–127; RESP 18–21; TEMP 97.2–98.4; O2SAT 96–100
[2025-02-19 08:14] LABS: BASOPHILS % 0.4 % (0.0-1.0); EOSINOPHILS % 0.2 % (0.0-6.0); LYMPHOCYTES % 8.9 % (18.0-39.1); MONOCYTES % 8.2 % (4.4-11.3); NEUTROPHILS % 81.9 % (38.7-80.0); RED CELL DISTRIBUTION WIDTH 17.8 % (11.7-14.4)
[2025-02-19 08:50] LABS: EST GLOMERULAR FILTRATION RATE 94.0 ML/MIN (>=60)
[2025-02-19] MEDS ORDERED: SODIUM BICARBONATE 650 MG TAB PO SCH (15:00)
[2025-02-19] MEDS: SODIUM BICARBONATE 650 MG TAB PO SCH (16:22)
[2025-02-20] VITALS (10 sets, daily range): BP systolic 137–163; BP diastolic 60–101; PULSE 77–98; RESP 18–21; TEMP 97.6–98.5; O2SAT 96–100
[2025-02-20 07:16] LABS: EST GLOMERULAR FILTRATION RATE 93.0 ML/MIN (>=60)
[2025-02-20] MEDS: PROMETHAZINE 25MG/ NS 50ML (IV) IV ONE (09:48)
[2025-02-20] MEDS: PROCHLORPERAZINE MALEATE TAB 10 MG TAB PO PRN (14:39)
[2025-02-20] MEDS: LOSARTAN POTASSIUM 25 MG TAB PO ONE (14:40)
[2025-02-21] VITALS (9 sets, daily range): BP systolic 133–166; BP diastolic 60–98; PULSE 78–150; RESP 18–21; TEMP 97.6–99.2; O2SAT 97–100
[2025-02-21] MEDS: PANTOPRAZOLE SOD 40 MG TABEC PO SCH (09:17)
[2025-02-21] MEDS: LOSARTAN POTASSIUM 25 MG TAB PO SCH (09:18)
[2025-02-21] MEDS: DILTIAZEM HCL 5 MG/ML 5 ML VIAL IV STA (11:04)
[2025-02-21] MEDS: METOPROLOL TARTRATE 25 MG TAB PO ONE (11:05)
[2025-02-21 11:46] LABS: EST GLOMERULAR FILTRATION RATE 98.0 ML/MIN (>=60)
[2025-02-21] MEDS: DILTIAZEM HCL VIAL 5 ML ONE (14:14)
[2025-02-21] MEDS: METOPROLOL TARTRATE 25 MG TAB ONE (14:14)
[2025-02-21] MEDS: ACETAMINOPHEN/CODEINE 300MG - 30MG TAB PO PRN (15:07)
[2025-02-21] MEDS: METOPROLOL SUCCINATE 50 MG TAB XL PO ONE (18:53)
[2025-02-21] MEDS: DILTIAZEM HCL ER 120 MG CAP PO SCH (18:53)
[2025-02-22] VITALS (10 sets, daily range): BP systolic 97–147; BP diastolic 62–99; PULSE 79–145; RESP 18–30; TEMP 97.9–98.5; O2SAT 94–100
[2025-02-22] MEDS: ONDANSETRON HCL INJ 2MG/ML 2ML 2 MG/ML VIAL IV PRN (08:07)
[2025-02-22] MEDS: DILTIAZEM HCL ER 90MG CAPSULE PO ONE (11:07)
[2025-02-22] MEDS: SODIUM BICARBONATE 8.4% VIAL 150 ML in DEXTROSE 5% 1,000 ML IV ONE (13:33)
[2025-02-22] MEDS: ONDANSETRON HCL INJ 2MG/ML 2ML 2 MG/ML VIAL IV STA (21:10)
[2025-02-22] MEDS: ALBUTEROL/IPRATROPIUM 3 ML NEB NEB PRN (22:29)
[2025-02-22] MEDS: FUROSEMIDE INJ 10 MG/ML 4 ML VIAL IV ONE (22:32)
[2025-02-23] VITALS (76 sets, daily range): BP systolic 38–146; BP diastolic -6–82; PULSE 0–129; RESP 4–39; TEMP 95.1–98.6; O2SAT 0–100
[2025-02-23] MEDS: DEXTROSE 5%/0.9% SOD CHL 1,000 ML IV ONE (00:32)
[2025-02-23] MEDS: SODIUM BICARBONATE 8.4% SYRING 150 ML ONE ×3 (00:33→22:54)
[2025-02-23] MEDS: SOD CHL IV ONE (00:33)
[2025-02-23] MEDS: DEXTROSE IV ONE (00:33)
[2025-02-23] MEDS: SODIUM BICARBONATE IV ONE (00:33)
[2025-02-23] MEDS: NOREPINEPHRINE 8 MG/D5W 250 ML 250 ML IV SCH (00:45)
[2025-02-23 02:52] LABS: LEUKOCYTE ESTERASE ,URINE NEGATIVE (NEGATIVE); PROTEIN,URINE DIPSTICK 2+ (NEGATIVE)
[2025-02-23 02:53] LABS: URINE UROBILINOGEN 0.2 mg/dL (0.2 - 1)
[2025-02-23] MEDS: SODIUM CHLORIDE 0.9% 1000ML 1,000 ML ONE (02:54)
[2025-02-23 02:55] LABS: EPITHELIAL CELLS,URINE MANY /LPF; WBC,URINE (MAN) 0-5 /HPF (0-5)
[2025-02-23] MEDS: NOREPINEPHRINE 8 MG/D5W 250 ML 250 ML ONE (02:56)
[2025-02-23] MEDS: SODIUM CHLORIDE 0.9% 1000ML 1,000 ML IV ONE (03:26)
[2025-02-23] MEDS: Vancomycin IV 1 GM in SODIUM CHLORIDE 0.9% 250ML 250 ML IV ONE (03:26)
[2025-02-23 05:39] LABS: EST GLOMERULAR FILTRATION RATE 31.0 ML/MIN (>=60)
[2025-02-23] MEDS: MIDODRINE 2.5 MG TAB PO SCH (06:00)
[2025-02-23] MEDS: FUROSEMIDE INJ 10 MG/ML 4 ML VIAL IV SCH (06:11)
[2025-02-23] MEDS ORDERED: FENTANYL 2000MCG/NS 250 250 ML IV PRN ×2 (06:15→07:00)
[2025-02-23] MEDS ORDERED: EPINEPHRINE HCL 1:1000 1ML 1 MG/ML AMP ONE (07:40)
[2025-02-23] MEDS: SODIUM CHLORIDE 0.9% 1000ML 2,000 ML IV ONE (08:29)
[2025-02-23 08:42] LABS: ABG BASE EXCESS -15.0 mmol/L (-2 - 3); ABG HCO3 15 mmol/L (22-26); ABG OXYGEN SATURATION 99.0 % (95-98); ABG PCO2 50 mmHg (35-45); ABG PH 7.09 (7.35-7.45); ABG PO2 193 mmHg (80-105); ABG TCO2 17
[2025-02-23] MEDS: SODIUM CHLORIDE 0.9% 1000ML 2,000 ML ONE (08:42)
[2025-02-23] MEDS: VASOPRESSIN 60 UNIT in DEXTROSE 5% 50ML 50 ML IV SCH (08:45)
[2025-02-23] MEDS: VASOPRESSIN INJ 20 UNIT/ML VIAL ONE (08:46)
[2025-02-23 08:51] LABS: BASOPHILS % 0.6 % (0.0-1.0); EOSINOPHILS % 0.2 % (0.0-6.0); LYMPHOCYTES % 10.3 % (18.0-39.1); MONOCYTES % 5.5 % (4.4-11.3); NEUTROPHILS % 82.8 % (38.7-80.0); RED CELL DISTRIBUTION WIDTH 19.7 % (11.7-14.4)
[2025-02-23] MEDS: METOPROLOL SUCCINATE 50 MG TAB XL PO SCH (09:00)
[2025-02-23] MEDS: DILTIAZEM HCL ER 90MG CAPSULE PO SCH (09:00)
[2025-02-23 09:13] LABS: BASOPHILS % 0.3 % (0.0-1.0); EOSINOPHILS % 0.2 % (0.0-6.0); LYMPHOCYTES % 15.1 % (18.0-39.1); MONOCYTES % 5.4 % (4.4-11.3); NEUTROPHILS % 77.6 % (38.7-80.0); RED CELL DISTRIBUTION WIDTH 19.5 % (11.7-14.4)
[2025-02-23] MEDS: PHENYLEPHRINE 10MG/ML VIAL 40 MG in DEXTROSE 5% 250ML 246 ML IV SCH (09:30)
[2025-02-23] MEDS: SODIUM BICARBONATE 8.4% INJ 50 ML SYR IV STA ×3 (09:31→21:41)
[2025-02-23] MEDS: EPINEPHRINE HCL 1:1000 1ML 4 MG in DEXTROSE 5% 250ML 250 ML IV SCH (09:32)
[2025-02-23] MEDS ORDERED: ALBUMIN 25% 12.5GM 0.25 GM/ML BTL IV ONE ×2 (10:15→11:15)
[2025-02-23] MEDS: ALBUMIN 25% 12.5GM 50ML 50 ML IV ONE ×2 (10:26→13:07)
[2025-02-23] MEDS: DEXTROSE 5% 250ML 250 ML IV ONE ×2 (10:28→11:23)
[2025-02-23] MEDS: FENTANYL 2000MCG/NS 250 250 ML IV PRN (10:33)
[2025-02-23] MEDS: SODIUM BICARBONATE 8.4% VIAL 150 ML in DEXTROSE 5% 1,000 ML IV SCH (11:09)
[2025-02-23] MEDS ORDERED: SODIUM CHLORIDE 0.9% 1000ML 2,000 ML ONE (11:57)
[2025-02-23] MEDS: POTASSIUM CHLORIDE 20MEQ/100ML 100 ML IV SCH (12:30)
[2025-02-23 13:10] LABS: EST GLOMERULAR FILTRATION RATE 31.0 ML/MIN (>=60)
[2025-02-23] MEDS: MIDAZOLAM HCL 2 MG/2 ML VIAL IV ONE (13:12)
[2025-02-23] MEDS: MIDAZOLAM HCL 2 MG/2 ML VIAL ONE (13:35)
[2025-02-23] MEDS: SODIUM CHLORIDE 0.9% 1000ML 1,000 ML IV SCH (13:35)
[2025-02-23 15:49] LABS: EST GLOMERULAR FILTRATION RATE 32.0 ML/MIN (>=60)
[2025-02-23] MEDS: CALCIUM CHLORIDE 13.6 MEQ in SODIUM CHLORIDE 0.9% 100 ML IV ONE ×2 (16:40→18:06)
[2025-02-23] MEDS: LACTATED RINGER'S 2,000 ML INJ SCH (18:34)
[2025-02-23] MEDS: ALBUMIN 5% 0.05 GM/ML BTL IV ONE (21:39)
[2025-02-23 21:48] LABS: ABG BASE EXCESS -23.0 mmol/L (-2 - 3); ABG HCO3 8 mmol/L (22-26); ABG OXYGEN SATURATION 96.0 % (95-98); ABG PCO2 33 mmHg (35-45); ABG PH 7.00 (7.35-7.45); ABG PO2 118 mmHg (80-105); ABG TCO2 9
[2025-02-23] MEDS ORDERED: VANCOMYCIN 2 GRAM/400 ML (PEG) 400 ML IV STA (22:28)
[2025-02-23] MEDS ORDERED: Vancomycin IV 1 GM VIAL ONE (22:45)
[2025-02-23] MEDS: ALBUMIN 5% 250ML 250 ML ONE (22:55)
[2025-02-23] MEDS: SODIUM CHLORIDE 0.9% 250ML 250 ML IV ONE (22:56)
[2025-02-23] MEDS ORDERED: SODIUM CHLORIDE 0.9% 250ML 250 ML IV ONE (23:30)
[2025-02-23 23:31] LABS: BASOPHILS % 0.3 % (0.0-1.0); EOSINOPHILS % 0.2 % (0.0-6.0); LYMPHOCYTES % 20.0 % (18.0-39.1); MONOCYTES % 3.5 % (4.4-11.3); NEUTROPHILS % 72.1 % (38.7-80.0); RED CELL DISTRIBUTION WIDTH 21.5 % (11.7-14.4)
[2025-02-23] MEDS ORDERED: SODIUM BICARBONATE 8.4% SYRING 50 ML ONE (23:41)
[2025-02-23] MEDS ORDERED: SODIUM BICARBONATE 8.4% SYRING 100 ML ONE (23:43)
[2025-02-23] MEDS ORDERED: SODIUM BICARBONATE 8.4% SYRING 150 ML ONE (23:48)
[2025-02-23 23:59] LABS: INR > 5.1
[2025-02-24] VITALS: BP 79/-6; PULSE 125; RESP 47; TEMP 96.3; O2SAT 100
[2025-02-24 00:04] LABS: EST GLOMERULAR FILTRATION RATE 29.0 ML/MIN (>=60)
[2025-02-24 00:15] VITALS: BP 9/7
[2025-02-24 05:33] LABS: BAND NEUTROPHILS % (MANUAL) 5 %; LYMPHOCYTES % (MANUAL) 18 % (19-48); METAMYELOCYTES % (MANUAL) 5 % (0-0); MONOCYTES % (MANUAL) 4 % (3.4-9.0); MYELOCYTES % (MANUAL) 6 % (0-0); NEUTROPHILS % (MANUAL) 58 % (40-74); NUCLEATED RED BLOOD CELLS 8; PLASMA CELLS %(MANUAL) 2; REACTIVE LYMPHOCYTES 2
[2025-02-24 05:35] LABS: ELLIPTOCYTE, RBC MODERATE; PLATELET MORPHOLOGY COMMENT FEW LARGE; RBC MORPHOLOGY COMMENT ABNORMAL
[2025-02-24 05:36] LABS: PLATELET ESTIMATE ADEQUATE
[2025-02-24 10:25] LABS: HEPATITIS A ANTIBODY IGM (P) Negative; HEPATITIS B CORE IGM (P) Negative; HEPATITIS B SURFACE AG (P) Negative
[2025-02-25 06:25] LABS: ABG BASE EXCESS -23.0 mmol/L (-2 - 3); ABG HCO3 8.0 mmol/L (22-26); ABG OXYGEN SATURATION 96.0 % (95-98); ABG PCO2 33.0 mmHg (35-45); ABG PH 7.0 (7.35-7.45); ABG PO2 118.0 mmHg (80-105); ABG TCO2 9.0
[2025-02-25 06:25] LABS: ABG BASE EXCESS -15.0 mmol/L (-2 - 3); ABG HCO3 15.0 mmol/L (22-26); ABG OXYGEN SATURATION 99.0 % (95-98); ABG PCO2 50.0 mmHg (35-45); ABG PH 7.09 (7.35-7.45); ABG PO2 193.0 mmHg (80-105); ABG TCO2 17.0
[2025-02-25 06:25] LABS: ABG BASE EXCESS -3.0 mmol/L (-2 - 3); ABG HCO3 20.0 mmol/L (22-26); ABG OXYGEN SATURATION 65.0 % (95-98); ABG PCO2 28.0 mmHg (35-45); ABG PH 7.47 (7.35-7.45); ABG PO2 31.0 mmHg (80-105); ABG TCO2 21.0
[2025-02-25 06:25] LABS: ABG BASE EXCESS -14.0 mmol/L (-2 - 3); ABG HCO3 16.0 mmol/L (22-26); ABG OXYGEN SATURATION 76.0 % (95-98); ABG PCO2 50.0 mmHg (35-45); ABG PH 7.11 (7.35-7.45); ABG PO2 55.0 mmHg (80-105); ABG TCO2 17.0
[2025-02-25 06:35] LABS: ABG BASE EXCESS -4.0 mmol/L (-2 - 3); ABG HCO3 20 mmol/L (22-26); ABG OXYGEN SATURATION 99.0 % (95-98); ABG PCO2 28 mmHg (35-45); ABG PH 7.46 (7.35-7.45); ABG PO2 114 mmHg (80-105); ABG TCO2 21
[2025-02-25 06:35] LABS: ABG BASE EXCESS -5.0 mmol/L (-2 - 3); ABG HCO3 15 mmol/L (22-26); ABG OXYGEN SATURATION 99.0 % (95-98); ABG PCO2 11 mmHg (35-45); ABG PH 7.73 (7.35-7.45); ABG PO2 100 mmHg (80-105); ABG TCO2 15
== END 2025-02-24 10:45 | disposition expired | DRG 329 ==
LOC: ER 00:06 → ERHOLD 03:05 → MED/SURG2 05:01 → OBSVTOIN 02-16 14:35 → ICU 02-22 23:56 → IMCU 02-24 09:14
PROVIDERS: ADMIT Internal Medicine; ATTEND Internal Medicine
PROC: 4A133R1 Monitoring of Arterial Saturation, Peripheral, Percutaneous Approach (ICD-10-PCS; principal; 2025-02-15)
PROC: 3E0333Z Introduction of Anti-inflammatory into Peripheral Vein, Percutaneous Approach (ICD-10-PCS; 2025-02-15)
PROC: 0DW Gastrointestinal System, Revision (ICD-10-PCS; 2025-02-16)
PROC: 02HV33Z Insertion of Infusion Device into Superior Vena Cava, Percutaneous Approach (ICD-10-PCS; 2025-02-23)
PROC: 04HY32Z Insertion of Monitoring Device into Lower Artery, Percutaneous Approach (ICD-10-PCS; 2025-02-23)
PROC: 3E043XZ Introduction of Vasopressor into Central Vein, Percutaneous Approach (ICD-10-PCS; 2025-02-23)
PROC: 5A2204Z Restoration of Cardiac Rhythm, Single (ICD-10-PCS; 2025-02-23)
PROC: 0BH17EZ Insertion of Endotracheal Airway into Trachea, Via Natural or Artificial Opening (ICD-10-PCS; 2025-02-23)
PROC: 5A1935Z Respiratory Ventilation, Less than 24 Consecutive Hours (ICD-10-PCS; 2025-02-23)
DX: K94.19 Other complications of enterostomy (principal); A41.9 Sepsis, unspecified organism; R65.21 Severe sepsis with septic shock; J96.90 Respiratory failure, unspecified, unspecified whether with hypoxia or hypercapnia; J69.0 Pneumonitis due to inhalation of food and vomit; N17.0 Acute kidney failure with tubular necrosis; E87.4 Mixed disorder of acid-base balance; D62 Acute posthemorrhagic anemia; I47.10 Supraventricular tachycardia, unspecified; E87.1 Hypo-osmolality and hyponatremia; I46.9 Cardiac arrest, cause unspecified; E11.9 Type 2 diabetes mellitus without complications; D50.9 Iron deficiency anemia, unspecified; I95.9 Hypotension, unspecified; I10 Essential (primary) hypertension; I48.0 Paroxysmal atrial fibrillation; J44.9 Chronic obstructive pulmonary disease, unspecified; R11.10 Vomiting, unspecified; K59.09 Other constipation; K21.9 Gastro-esophageal reflux disease without esophagitis; F32.A Depression, unspecified; E66.9 Obesity, unspecified; Z68.32 Body mass index [BMI] 32.0-32.9, adult; Y83.3 Surgical operation with formation of external stoma as the cause of abnormal reaction of the patient, or of later complication, without mention of misadventure at the time of the procedure; Z79.01 Long term (current) use of anticoagulants; Z85.01 Personal history of malignant neoplasm of esophagus; Z90.49 Acquired absence of other specified parts of digestive tract; Z90.710 Acquired absence of both cervix and uterus; Z88.0 Allergy status to penicillin; Z88.5 Allergy status to narcotic agent; Z88.2 Allergy status to sulfonamides; Z88.8 Allergy status to other drugs, medicaments and biological substances; Z91.048 Other nonmedicinal substance allergy status
CPT/HCPCS: 31500; 36415; 36569; 36600; 43761; 71045; 71260; 74018; 74177; 74470; 80048; 80053; 81001; 82140; 82607; 82746; 82805; 82948; 83036; 83540; 83605; 83690; 84466; 84484; 85014; 85018; 85025; 85045; 85610; 85730; 86850; 86900; 86920; 87040; 87071; 87086; 87186; 87205; 92950; 93005; 94002; 94003; 94640; 94660; 94799; 99284; C1769; G0378; J0169; J0360; J0696; J1171; J1756; J1938; J2060; J2185; J2250; J2371; J2405; J2470; J2550; J2765; J3373; J7030; J7042; J7050; J7070; P9016; Q9963; Q9967